=== PATIENT | male | born 2005 | race Caucasian/White ===

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

== ENCOUNTER 2023-09-17 19:10 | Emergency (ER) | payer BC ==
[2023-09-17] MEDS ORDERED: Lidocaine 1% 10 ML MDV INJECT ONE (19:49)
== END 2023-09-17 20:34 | disposition home or self-care (01) ==
LOC: JD.ED 19:10
DX: S81.012A Laceration without foreign body, left knee, initial encounter (principal); Z79.899 Other long term (current) drug therapy; Z86.16 Personal history of COVID-19; W22.8XXA Striking against or struck by other objects, initial encounter
CPT/HCPCS: 12002; 99282; 99283; J3490